=== PATIENT | female | born 1995 | race Caucasian/White ===

== ENCOUNTER 2017-09-03 16:15 | Emergency (ER) | payer BC ==
[2017-09-03 18:58] LABS: ABS Basophils 0 10^3/ul (0-0.2); ABS Eosinophils 0 10^3/ul (0-0.6); ABS Lymphocytes 1.4 10^3/ul (1.0-4.8); ABS Monocytes 0.5 10^3/ul (0-0.8); ABS Neutrophils 5.9 10^3/ul (1.5-7.7); ABS Nucleated RBC 0 10^3/ul; Eosinophil % 0.5 % (0-6); Hematocrit 31 % (35-47); Hemoglobin 10.4 g/dl (12.0-16.0); Lymphocyte % 17.5 % (25-47); Mean Corpuscular HGB Conc 33 g/dl (31-36); Mean Corpuscular Hemoglobin 27 pg (27-31); Mean Corpuscular Volume 82 fL (80-97); Mean Platelet Volume 8 um3 (7.4-10.4); Nucleated Red Blood Cells % 0; Platelet Count 220 10^3/ul (150-450); Red Blood Count 3.83 10^6/ul (4.0-5.4); Red Cell Distribution Width 14 % (10.5-15); White Blood Count 7.8 10^3/ul (3.5-10.8)
[2017-09-03 19:13] LABS: EGFR Non-African American 207.5 (>60)
[2017-09-03 19:21] LABS: INR 0.87 (0.77-1.02)
--- NOTE | 2017-09-03 19:35 | ED ---
Throat Pain/Nasal Congestion - HPI Summary HPI Summary: 22F at 36 weeks presents with blue lips this morning. She states she was in her car when she noticed that around her lips were blue. She states the color lasted a couple hours and went away. This has never happened before. she is anemia and has been taking iron supplements. She denies any dizziness or heart palpitations. She has never been symptomatic from her anemia before. She denies any active bleeding. She denies any swelling to the area. She denies any chest pain or SOB. She states she has been having michelet-moulton that are unchanged from the previous days. She states the baby has been kicking and moving as normal. She denies any fever. She denies any recent infection. She denies any vomiting or diarrhea. She denies any new exposures. She has no medical conditions. Her mom has an unknown rheumatologic condition. - History of Current Complaint Chief Complaint: EDGeneral Time Seen by Provider: 09/03/17 18:13 - Allergies/Home Medications Allergies/Adverse Reactions: Allergies Allergy/AdvReac Type Severity Reaction Status Date / Time No Known Allergies Allergy Verified 09/03/17 16:23 PMH/Surg Hx/FS Hx/Imm Hx Endocrine/Hematology History: Reports: Hx Anemia Denies: Hx Anticoagulant Therapy Cardiovascular History: Denies: Hx Myocardial Infarction Infectious Disease History: No Infectious Disease History: Denies: Traveled Outside the [place] in Last 30 Days - Family History Known Family History: Positive: Other - rheumatologic condition - Social History Alcohol Use: None Substance Use Type: Reports: None Smoking Status (MU): Never Smoked Tobacco Review of Systems Negative: Fever Positive: Other - blue lips Negative: Chest Pain Negative: Shortness Of Breath All Other Systems Reviewed And Are Negative: Yes Physical Exam Triage Information Reviewed: Yes Vital Signs On Initial Exam: Initial Vitals Temp Pulse Resp BP Pulse Ox 98.9 F 108 16 129/77 98 09/03/17 16:20 09/03/17 16:20 09/03/17 16:20 09/03/17 16:20 09/03/17 16:20 Vital Signs Reviewed: Yes Appearance: Positive: Well-Appearing Skin: Positive: Warm, Dry Head/Face: Positive: Normal Head/Face Inspection Eyes: Positive: Normal, EOMI, ZENAIDA, Conjunctiva Clear ENT: Positive: Normal ENT inspection, Pharynx normal, TMs normal Respiratory/Lung Sounds: Positive: Clear to Auscultation, Breath Sounds Present Cardiovascular: Positive: Normal, RRR Abdomen Description: Positive: Nontender, Soft Bowel Sounds: Positive: Present Musculoskeletal: Positive: Normal Neurological: Positive: Normal - Cheri Coma Scale Coma Scale Total: 15 Diagnostics - Vital Signs Vital Signs Temp Pulse Resp BP Pulse Ox 09/03/17 16:20 98.9 F 108 16 129/77 98 - Laboratory Lab Results: Lab Results 09/03/17 09/03/17 09/03/17 Range/Units 18:49 18:49 18:49 WBC 7.8 (3.5-10.8) 10^3/ul RBC 3.83 L (4.0-5.4) 10^6/ul Hgb 10.4 L (12.0-16.0) g/dl Hct 31 L (35-47) % MCV 82 (80-97) fL MCH 27 (27-31) pg MCHC 33 (31-36) g/dl RDW 14 (10.5-15) % Plt Count 220 (150-450) 10^3/ul MPV 8 (7.4-10.4) um3 Neut % (Auto) 75.6 (38-83) % Lymph % (Auto) 17.5 L (25-47) % Long % (Auto) 6.0 (1-9) % Eos % (Auto) 0.5 (0-6) % Baso % (Auto) 0.4 (0-2) % Absolute Neuts (auto) 5.9 (1.5-7.7) 10^3/ul Absolute Lymphs (auto) 1.4 (1.0-4.8) 10^3/ul Absolute Monos (auto) 0.5 (0-0.8) 10^3/ul Absolute Eos (auto) 0 (0-0.6) 10^3/ul Absolute Basos (auto) 0 (0-0.2) 10^3/ul Absolute Nucleated RBC 0 10^3/ul Nucleated RBC % 0 INR (Anticoag Therapy) 0.87 (0.77-1.02) APTT 25.6 L (26.0-36.3) seconds Sodium 135 (133-145) mmol/L Potassium 3.5 (3.5-5.0) mmol/L Chloride 104 (101-111) mmol/L Carbon Dioxide 24 (22-32) mmol/L Anion Gap 7 (2-11) mmol/L BUN 5 L (6-24) mg/dL Creatinine 0.39 L (0.51-0.95) mg/dL Est GFR ( Amer) 266.8 (>60) Est GFR (Non-Af Amer) 207.5 (>60) BUN/Creatinine Ratio 12.8 (8-20) Glucose 92 (70-100) mg/dL Calcium 8.6 (8.6-10.3) mg/dL Total Bilirubin 0.50 (0.2-1.0) mg/dL AST 17 (13-39) U/L ALT 9 (7-52) U/L Alkaline Phosphatase 122 H (34-104) U/L Total Protein 5.9 L (6.4-8.9) g/dL Albumin 3.3 (3.2-5.2) g/dL Globulin 2.6 (2-4) g/dL Albumin/Globulin Ratio 1.3 (1-3) Result Diagrams: 09/03/17 18:49 09/03/17 18:49 Lab Statement: Any lab studies that have been ordered have been reviewed, and results considered in the medical decision making process. EENT Course/Dx - Course Course Of Treatment: 22F at 36 weeks presents with blue lips this morning. She states she was in her car when she noticed that around her lips were blue. She states the color lasted a couple hours and went away. This has never happened before. she is anemia and has been taking iron supplements. She denies any dizziness or heart palpitations. She has never been symptomatic from her anemia before. She denies any active bleeding. She denies any swelling to the area. She denies any chest pain or SOB. She states she has been having michelet-[place] that are unchanged from the previous days. She states the baby has been kicking and moving as normal. She denies any fever. She denies any recent infection. She denies any vomiting or diarrhea. She denies any new exposures. She has no medical conditions. Her mom has an unknown rheumatologic condition. on exam lips are not blue. lungs CTA. pharynx normal. hcg 10 but do not know baseline. will have follow up with primary. if anything changes told to return to ED. patient understand and agrees with plan. - Differential Diagnoses Differential Diagnoses: Other - anemia, allergic reaction, angioedema - Diagnoses Provider Diagnoses: Anemia, Disorder of lip Discharge - Discharge Plan Condition: Good Disposition: HOME Referrals: Loida POLLARD,Criss Valdez [Primary Care Provider] - Additional Instructions: unclear why your lips turned blue If develop any new symptoms return to ED Follow up with primary and obgyn Continue iron supplement
[2017-09-03 19:41] VITALS: BP 109/65
== END 2017-09-03 19:42 | disposition home or self-care (01) ==
LOC: ED 16:15
DX: O99.013 Anemia complicating pregnancy, third trimester (principal); D64.9 Anemia, unspecified; O26.893 Other specified pregnancy related conditions, third trimester; K13.0 Diseases of lips; Z3A.36 36 weeks gestation of pregnancy
CPT/HCPCS: 36415; 80053; 85025; 85610; 85730; 99282